=== PATIENT | male | born 1950 | race African-American/Black ===

== ENCOUNTER 2019-06-12 15:09 | Outpatient (CLI) | payer MEDICARE ==
--- NOTE | 2019-06-12 16:41 | MRI ---
MRI lumbar spine noncontrast: HISTORY: Spastic paresis. Difficulty walking. COMPARISON: None FINDINGS: Appropriate T1 marrow signal intensity of the lumbar vertebra. Lumbar spine vertebral body height is maintained. No fracture. No significant STIR hyperintensity to suggest vertebral body edema or ligamentous injury. Spondylolisthesis: 2 mm of retrolisthesis of L3 upon L4 and 3.8 mm of anterolisthesis of L4 upon L5. Appropriate signal intensity of the paraspinal muscles and solid organs Conus medullaris terminates at the upper aspect of L1 The overall AP diameter of the central spinal canal is narrowed secondary to congenitally foreshorten ed pedicles T12-L1:No significant central canal stenosis or significant neural foraminal narrowing L1-L2:Mild disc desiccation. No significant posterior disc abdomen body. No significant central canal stenosis. Bilaterally, neural foramina are patent. L2-L3:Desiccation without significant loss of disc space height. Minimal left and right paracentral d isc bulges, ligament flavum thickening and facet hypertrophy result in mild central canal stenosis. Mild bilateral foraminal narrowing. L3-L4:Desiccation without significant loss of disc space height. Broad-based disc bulge, ligamentum f lavum thickening and facet hypertrophy result in mild central canal stenosis. Moderate right and moderate to severe left foraminal narrowing. L4-L5:Desiccation without significant loss of disc space height. Broad-based disc bulge, ligament fla vum thickening and facet hypertrophy result in severe central canal stenosis. Moderate right and moderate to severe left foraminal narrowing. L5-S1:Desiccation without significant loss of disc space height. There is a broad-based disc bulge wi th a central and right subarticular inferior disc extrusion. Mild stenosis of the thecal sac. There is mass effect and partial obscuration the traversing right S1 nerve root secondary to disc material. Minimal ligament flavum thickening and facet hypertrophy. Moderate to severe right and moderate left foraminal narrowing. IMPRESSION: 1. Decreased AP diameter of the central spinal canal due to congenitally foreshortened pedicles 2. Spondylolisthesis as above 3. Severe central canal stenosis at L4-L5. 4. Narrowing of the right subareolar zone at L5-S1 due to disc material. Partial obscuration of the traversing right S1 nerve root. 5. Significant neural foraminal narrowing at multiple levels as described above. Transcribed Date/Time: 06/12/2019 4:55 PM
== END 2019-06-12 15:10 | disposition home or self-care (01) ==
LOC: BICMRI 15:09
PROVIDERS: ATTEND Psychiatry & Neurology Neurology
DX: M62.9 Disorder of muscle, unspecified (principal); M43.16 Spondylolisthesis, lumbar region; M48.061 Spinal stenosis, lumbar region without neurogenic claudication; M48.07 Spinal stenosis, lumbosacral region
CPT/HCPCS: 72148

== ENCOUNTER 2020-02-26 06:34 | Outpatient (CLI) | payer MEDICARE, OTHER ==
[2020-02-26 14:23] LABS: Anion Gap 12 mmol/L (10-20); BUN (Urea Nitrogen) 33 mg/dL (8.4-25.7); Calc. Creatinine Clearance 0 mL/min (70-130); Calcium 9.9 mg/dL (7.8-10.44); Carbon Dioxide 27 mmol/L (23-31); Chloride 106 mmol/L (98-107); Estimated GFR-MDRD 44; Glucose 111 mg/dL (80-115); Potassium 4.4 mmol/L (3.5-5.1); Sodium 141 mmol/L (136-145)
[2020-02-27 17:20] LABS: SARS-CoV-2 MS2 Positive; SARS-CoV-2 N Gene Negative; SARS-CoV-2 S Gene Negative; SARS-CoV-2 orf1ab Negative
== END 2020-02-26 06:35 | disposition home or self-care (01) ==
LOC: LABBT 06:34
PROVIDERS: ATTEND Neurological Surgery
DX: Z01.818 Encounter for other preprocedural examination (principal); Z11.59 Encounter for screening for other viral diseases; M48.061 Spinal stenosis, lumbar region without neurogenic claudication
CPT/HCPCS: 80048; 93005; U0003; 87635; 93010

== ENCOUNTER 2020-02-29 08:32 | Day surgery (SDC) | payer MEDICARE ==
[2020-02-26 11:24] VITALS: BMI 25.1
--- NOTE | 2020-02-28 18:59 | HP ---
HISTORY OF PRESENT ILLNESS: Mr. iTm is a pleasant 69-year-old man here today for evaluation and 2nd opinion after evaluation with Dr. Pratt last year for lumbar spinal stenosis with symptoms of claudication and bilateral L5 radiculopathies. He has an MRI from [place] that reveals severe spinal stenosis at L4-5 with an early nonmobile grade 1 slip as well as a right-sided L5 disk herniation that imposes moderate right-sided lateral recess stenosis and likely impacts the descending right S1 nerve root. His pains are of the same intensity bilaterally. Walking any distances and getting up from sitting or standing are worse aggravators of his symptoms. Steady motion keeps his symptoms at bay. He has attempted epidural steroid injections with only modest efficacy. PHYSICAL EXAMINATION: He is alert and oriented x3. Gait is severely antalgic and slowed. He has full strength in all muscle movements of the bilateral lower extremities. PAST MEDICAL HISTORY: Significant for diabetes and asthma. PAST SURGICAL HISTORY: Cervical laminectomy. CURRENT MEDICATIONS: 1. Amlodipine. 2. Hydrochlorothiazide. 3. Lisinopril. 4. Metformin. 5. Lantus. 6. Baclofen. 7. Botox injection. ALLERGIES: NO KNOWN DRUG ALLERGIES. ASSESSMENT: Lumbar spinal stenosis. PLAN: Dr. Vizcaino met with the patient, reviewed imaging, and advocated for an L4-5 decompression. He explained to the patient the risks, benefits, and alternatives to the procedure. The patient expressed understanding and elected to move forward with surgery as planned. I do believe that the patient is mentally competent and capable of making medical decisions for himself. Job ID: [id number]
[2020-02-29] MEDS ORDERED: Fentanyl 100 MCG/2 ML VIAL ONE ×3 (11:35→14:51)
[2020-02-29] MEDS ORDERED: Lidocaine 1% w/Epinephrine 1:100K 20 ML VIAL ONE (12:04)
[2020-02-29] MEDS ORDERED: Bupivacaine PF 0.5% 30 ML VIAL ONE (12:04)
[2020-02-29] MEDS ORDERED: PROPOFOL 200 MG/20 ML VIAL ONE (12:19)
[2020-02-29] MEDS ORDERED: Dexamethasone 20 MG/5 ML VIAL ONE (12:19)
[2020-02-29] MEDS ORDERED: Lidocaine 1% PF 5 ML VIAL ONE (12:19)
[2020-02-29] MEDS ORDERED: Rocuronium Bromide 10 MG/ML (10ML VIAL) ONE (12:19)
[2020-02-29] MEDS ORDERED: Glycopyrrolate 0.2 MG/ML 5 ML SYRINGE ONE (12:19)
[2020-02-29] MEDS ORDERED: Esmolol 100 MG/10 ML VIAL ONE (12:19)
[2020-02-29] MEDS ORDERED: Labetalol HCl 100 MG/20 ML VIAL ONE (12:19)
[2020-02-29] MEDS ORDERED: Midazolam HCl 2 mg/2 ml Vial ONE (12:47)
[2020-02-29] MEDS ORDERED: HYDROcodone/Acetaminophen 5/325 mg Tablet ONE (16:37)
--- NOTE | 2020-03-01 10:42 | OP ---
DATE OF PROCEDURE: 02/29/2020 SHAPE BRICK MOLDER: Robin Velasquez PA-C INDICATION: Pain. DIAGNOSIS: Lumbar stenosis with lumbar neurogenic claudication. PROCEDURE PERFORMED: L4-L5 decompression. ANESTHESIA: General. DESCRIPTION OF PROCEDURE: The patient was brought into the operating room and placed under general anesthesia. He was flipped from the supine to prone position on the operating room table. A linear incision was planned just above previously located incision from a prior operation. After creating the incision, the soft tissues were swept away from midline. A self-retaining retractor was placed. The C-arm image was then obtained to confirm the appropriate level. High-speed cutting drill bit as well as Adson rongeur and 2, 3, and 4 mm Kerrisons were used to perform a laminectomy adjacent to the patient's previously decompressed and fused segment at L4-L5. After completing the decompression, the wound was irrigated. Hemostasis was maintained throughout. The wound was then closed in anatomic layers and a pressure dressing was applied. There were no known surgical complications. Job ID: [id number]
== END 2020-02-29 17:18 | disposition home or self-care (01) ==
LOC: SDC 08:32
PROVIDERS: ATTEND Neurological Surgery
PROC: 01NB0ZZ Release Lumbar Nerve, Open Approach (ICD-10-PCS; principal; 2020-02-29)
DX: M48.062 Spinal stenosis, lumbar region with neurogenic claudication (principal); M51.16 Intervertebral disc disorders with radiculopathy, lumbar region; E11.9 Type 2 diabetes mellitus without complications; J45.909 Unspecified asthma, uncomplicated; I10 Essential (primary) hypertension; F17.220 Nicotine dependence, chewing tobacco, uncomplicated; Z79.4 Long term (current) use of insulin; Z79.82 Long term (current) use of aspirin; Z79.899 Other long term (current) drug therapy; Z98.1 Arthrodesis status
CPT/HCPCS: 76000; J0690; J1100; J2001; J2250; J2704; J3010; S0020

== ENCOUNTER 2020-07-07 08:28 | Outpatient (CLI) | payer MEDICARE ==
--- NOTE | 2020-07-07 11:09 | CT ---
CT PELVIS WITHOUT CONTRAST: Date: 07/07/2020 INDICATION: Abnormal prostate identified on MRI of lumbar spine. FINDINGS: There is significant enlargement of the prostate. Prostate measures 7.0 cm AP dimension x 7.0 cm widt h in the axial plane. There is impingement on the floor of the bladder. Prostate neoplasm involving t he floor of the bladder cannot be excluded. Nonspecific pelvic side wall lymph nodes measure up to 1.2 cm. The urinary bladder wall is mildly thickened. Visualized small and large bowel loops appear unremarkable. No free fluid. Osseous structures unremarkable. Degenerative disc changes in the lower lumbar spine at L4-5 and L5-S 1. No lytic or blastic osseous process identified. IMPRESSION: Significant prostatic hypertrophy involving the floor of the bladder and associated bladder wall thic kening. Nonspecific pelvic lymph nodes. Recommend urologic consultation. POS: KEERTHI
== END 2020-07-07 08:29 | disposition home or self-care (01) ==
LOC: TBSIIMAG 08:28
PROVIDERS: ATTEND Neurological Surgery
DX: R19.00 Intra-abdominal and pelvic swelling, mass and lump, unspecified site (principal); N40.0 Benign prostatic hyperplasia without lower urinary tract symptoms; N32.89 Other specified disorders of bladder
CPT/HCPCS: 72192